=== PATIENT | male | born 1970 ===

== ENCOUNTER 2024-03-03 06:48 | Emergency (ER) | payer SELFPAY ==
[2024-03-03 06:50] VITALS: BP 146/85; PULSE 85; RESP 18; TEMP 36.5; O2SAT 98
[2024-03-03 08:54] VITALS: BP 142/87; PULSE 79; RESP 20; TEMP 36.6; O2SAT 98
== END 2024-03-03 10:51 | disposition left against medical advice (07) ==
LOC: ANHED 10:42
DX: R42 Dizziness and giddiness (principal); H93.19 Tinnitus, unspecified ear
CPT/HCPCS: 99199